=== PATIENT | male | born 1990 | race Caucasian/White ===

== ENCOUNTER 2023-05-13 08:10 | Emergency (ER) | payer OTHER ==
[~2023-05-13] VITALS: Ht 188 cm; Wt 154.2 kg
[2023-05-13 08:21] VITALS: BP 138/77; PULSE 108; RESP 20; TEMP 97.8; O2SAT 95
[2023-05-13 08:30] VITALS: O2SAT 95
[2023-05-13] MEDS: BACITRACIN OINT 500 UNITS/GM PKT TP ONE ×2 (09:55→10:01)
== END 2023-05-13 10:03 | disposition home or self-care (01) ==
LOC: MED 08:10
DX: S01.01XA Laceration without foreign body of scalp, initial encounter (principal); W22.8XXA Striking against or struck by other objects, initial encounter; Y92.89 Other specified places as the place of occurrence of the external cause; Y93.89 Activity, other specified; Y99.8 Other external cause status
CPT/HCPCS: 90715; 99282

== ENCOUNTER 2023-07-31 07:46 | Emergency (ER) | payer OTHER ==
[~2023-07-31] VITALS: Ht 188 cm; Wt 145.1 kg
[2023-07-31 08:31] VITALS: BP 139/86; PULSE 105; RESP 18; TEMP 98; O2SAT 98
[2023-07-31] MEDS ORDERED: NAPR-1704 PO (08:42)
[2023-07-31] MEDS ORDERED: CEPH-588 PO (08:42)
== END 2023-07-31 08:54 | disposition home or self-care (01) ==
LOC: MED 07:46
DX: L03.113 Cellulitis of right upper limb (principal); F17.210 Nicotine dependence, cigarettes, uncomplicated; F15.90 Other stimulant use, unspecified, uncomplicated; Z71.6 Tobacco abuse counseling; Z79.2 Long term (current) use of antibiotics; Z79.1 Long term (current) use of non-steroidal anti-inflammatories (NSAID)
CPT/HCPCS: 90471; 90715; 99283